=== PATIENT | female | born 1970 | race American Indian/Alaskan Native ===

== ENCOUNTER 2019-07-03 08:13 | Emergency (ER) | payer SELFPAY ==
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
[2019-07-03 09:48] VITALS: BP 160/96
== END 2019-07-03 10:07 | disposition home or self-care (01) ==
LOC: ED 08:13
DX: M25.551 Pain in right hip (principal); M79.661 Pain in right lower leg; Z79.899 Other long term (current) drug therapy; Z88.6 Allergy status to analgesic agent; V49.49XA Driver injured in collision with other motor vehicles in traffic accident, initial encounter; Y93.89 Activity, other specified; Y92.488 Other paved roadways as the place of occurrence of the external cause; Y99.8 Other external cause status